=== PATIENT | male | born 1945 | race Caucasian/White ===

== ENCOUNTER 2018-07-17 10:42 | Inpatient (IN) ==
[2018-07-17] MEDS ORDERED: *HR* Metoprolol 5 MG/5 ML VIAL IVP PRN (12:57)
--- NOTE | 2018-07-17 13:10 | Pulmonology History & Physical ---
<Jarod Garcia W - Last Filed: 07/17/18 13:16> Date of Encounter: 07/17/18 History of Present Illness HPI: Mr. Rodriguez is a 73 year old male Medications and Allergies Albuterol Sulfate [Proair Respiclick] 2 puff IH QID PRN 02/08/15 [History] Atenolol [Tenormin] 50 mg PO QPM 02/08/15 [History] Clopidogrel [Plavix] 75 mg PO QAM 02/08/15 [History] Cranberry 140 mg PO QAM 02/08/15 [History] GlyBURIDE 10 mg PO BID 02/08/15 [History] LORazepam [Ativan] 1 mg PO TID 02/08/15 [History] Lisinopril [Zestril] 1.25 mg PO QAM 02/08/15 [History] Multivitamin/Iron/Folic Acid [Centrum Complete Multivit Tab] 1 each PO QAM 02/08/15 [History] Paroxetine [Paxil] 10 mg PO BID 02/08/15 [History] Simvastatin [Zocor] 10 mg PO QPM 02/08/15 [History] metFORMIN [Glucophage] 1,000 mg PO BID 02/08/15 [History] Albuterol Neb [Proventil Neb] 2.5 mg IH QID 30 Days 02/11/15 [Rx] Budesonide/Formoterol 160/4.5 [Symbicort] 2 puff IH BIDR 30 Days inhaler 02/11/15 [Rx] Doxycycline 100 mg PO BID 9 Days capsule 02/11/15 [Rx] GuaiFENesin ER [Mucinex] 600 mg PO BID PRN tbbp.12hr 02/11/15 [Rx] Levofloxacin [Levaquin] 500 mg PO DAILY #4 tablet 02/11/15 [Rx] PredniSONE 30 mg PO DAILY #2 tablet 02/11/15 [Rx] Allergy/AdvReac Type Severity Reaction Status Date / Time No Known Allergies Allergy Verified 02/08/15 08:41 All Systems: The remainder of the systems were reviewed and are negative - Attending Attestation I examined this patient and my medical decision-making was reviewed with the Resident Physician. I agree with the documented findings, disposition and treatment plan as described except to the extent set forth below. We independently had [id number] contact with the patient Patient seen and examined at bedside Labs, radiology, chart personally reviewed. 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 Consider cardiology consult may add to ACS protocol of heparin if troponin continues to trend up or evidence of echocardiographic wall motion abnormalities. GI: Continue to monitor Nutrition: Nothing by mouth for now Renal: Suspected AK I although we do not have a baseline creatinine in our system. He received fluids continue renal protective strategy UOP Monitored, Cont to Trend sCr and monitor Electrolytes. ID: Severe sepsis modestly elevated lactate we will trend as he is receiving fluids at the outside hospital would hold off on further crystalloid infusion at this time given suspect underlying heart failure the context of NSTEMI Heme/Onc: DVT prophylaxis given Endo: Glucose Monitored hyperglycemia start bolus insulin may need insulin infusion rule out DKA Integ/MSK: Skin Care per routine ICU Nursing Protocol to prevent ulcers. Lines: All lines examined without evidence of infection : Dispo: He will be monitored in the ICU overnight CODE: Full <Geni Meneses - Last Filed: 07/17/18 20:27> Date of Encounter: 07/17/18 Time of Encounter: 13:10 Assessment and Plan (1) Severe sepsis Current visit: Yes Status: Acute SIRS criteria met: HR > 90, RR > 20, WBC > 12 with PNA as suspected source Afebrile, SBP 110's Etiology: suspect community-acquired pneumonia Causative organism: Uncertain WBC 22.3, no bands (WBC 20.2 at [facility]) Lactic acid 3.7 at [facility] -----> repeat lactic acid 2.1 Received 2 L fluid bolus prior to arrival Respiratory infection panel--results pending Legionella and strep pneumo urinary antigens--results pending CXR: Airspace opacity of left hemithorax, likely pneumonia Levaquin 1 dose and vancomycin 1 dose at [facility] Plan Blood cultures obtained, results pending Sputum culture ordered, will try to collect Empiric antibiotics Rocephin and Levaquin will start tomorrow Repeat lactic acid 1 Monitor for fever overnight (2) Acute hypoxemic respiratory failure Current visit: No Status: Acute Most likely secondary to AECOPD as a result of pneumonia Known history COPD, not on home oxygen Reported SpO2 58% on room air when patient arrived at [facility] Initial ABG at [facility] pH 7.37 / pCO2 34 / pO2 57 / bicarb 19.7 / O2 sat 88% Repeat ABG on BiPAP pH 7.35 / pCO2 34 / pO2 159 / bicarb 18.8 / O2 sat 99% Antibiotics as above Continue DuoNebs, Symbicort Continue BiPAP overnight (3) Pneumonia Current visit: Yes Status: Acute As above Qualifiers: Pneumonia type: due to unspecified organism Laterality: left Lung location: unspecified part of lung Qualified Code(s): J18.9 - Pneumonia, unspecified organism (4) Acute exacerbation of chronic obstructive airways disease Current visit: Yes Status: Acute Known history of COPD, not on home oxygen Acute exacerbation most likely due to suspected community-acquired pneumonia Received Solu-Medrol 125 mg IVP 2 doses at [facility] Continue antibiotics as above Continue DuoNebs and Symbicort Continue BiPAP Solu-Medrol 60 mg IVP Q8H (5) Elevated troponin Current visit: No Status: Acute Troponin 0.18, 0.72, now 1.23 Must rule out ACS, however I suspect elevation is more likely d/t combination of demand ischemia from respiratory failure, severe sepsis, and CHAI EKG at [facility] showed ST depression in V5-V6, received ASA 325 mg prior to arrival No ST elevations or depression appreciated on repeat EKG--sinus tachycardia and 1st degree AV block noted Echocardiogram ordered Heparin gtt started Repeat troponin ordered Continue cardiac monitoring Cardiology consulted (6) NSTEMI (non-ST elevated myocardial infarction) Current visit: Yes Status: Acute Denies previous h/o [place]; reports heart cath in the past but denies stents/intervention Troponin trending upwards, must rule out ACS EKG findings as above Plan as above (7) Acute kidney injury Current visit: Yes Status: Acute Unclear baseline Creatinine at [facility] 1.62 ---> now 1.8 Suspect pre-renal etiology of demand ischemia secondary to severe sepsis Has received IVF hydration for sepsis and DKA Monitor I/O's including urine output Urine electrolytes ordered (8) DKA (diabetic ketoacidoses) Current visit: Yes Status: Acute Anion gap 14 Beta-hydroxybutyrate elevated 1.23 Hx of DM type 2 Home meds haven't been verified, but metformin and glyburide are listed 2 L fluid bolus held, has received > 2 L prior to arrival ---> will give 500 mL LR at 125 mL/hr Strict I/O's Insulin gtt per DKA protocol Monitor anion gap with BMP, transition off insulin gtt when glucose reaches 200 Glucose checks per protocol NPO for now (diabetic diet once gap closes and insulin gtt transitioned to SubQ) Qualifiers: Diabetes mellitus type: type 2 Diabetes mellitus complication detail: without coma Qualified Code(s): E11.10 - Type 2 diabetes mellitus with ketoacidosis without coma (9) Hypomagnesemia Current visit: Yes Status: Acute Magnesium 1.5 Replace as needed per electrolyte protocol Recheck in AM (10) DVT prophylaxis Current visit: Yes Status: Acute Heparin drip History of Present Illness Chief complaint: Shortness of breath HPI: Mr. Rodriguez is a 73 year old male who was transferred to the ICU from [facility] where he presented for shortness of breath. Per review of chart sent from [facility], patient reported shortness of breath x 12 hours. When patient arrived to [facility] ED he was tachycardic with HR 130s and oxygen saturation was 58% on room air. Shortness of breath improved with BiPAP. CBC significant for leukocytosis of 20.2. Metabolic panel significant for SCr 1.62 with unknown baseline and glucose 358. He received Solu-Medrol 125 mg IV and Levaquin 750 mg IV. EKG at [facility] showed ST depressions in V5 and V6, initial troponin was 0.18 and on repeat troponin was 0.72. Lactic acid was 3.8 and repeat lactic acid was 3.7. He received 2 L of saline. [facility] CXR showed left sided airspace opacity suspicious for pneumonia. Patient was transferred to [place] ICU for further evaluation and management. At the time of my exam the patient was alert, appeared uncomfortable, and was on BiPAP. Patient denies fevers, chills, chest pain, coughing, abdominal pain, nausea, vomiting, diarrhea, constipation, difficulty urinating, pain with urination, hematuria, foul-smelling urine. Reports bringing up clear phlegm once. Past Med Surg Social Fam HX - Past Medical History Medical history: COPD, diabetes, hypertension, renal disease Psychiatric history: anxiety, depression - Past Surgical History Surgical History: other Additional surgical history: heart cath - Social History Smoking Status: Former smoker (quit 10 yrs ago.) Smokeless Tobacco Status: Yes Alcohol use: none Drug use: none All Systems: The remainder of the systems were reviewed and are negative - Constitutional Constitutional: no chills, no fever(s) - Cardiovascular Cardiovascular: dyspnea, no chest pain, no leg edema, no pedal edema - Respiratory Respiratory: dyspnea, wheezing, other, no cough - Gastrointestinal Gastrointestinal: no abdominal pain, no diarrhea, no nausea, no vomiting - Genitourinary Genitourinary: no difficulty urinating, no dysuria, no hematuria - Neurological Neurological: other (walks with cane, fall 3 days ago) Physical Examination General appearance: no acute distress, alert, other (unkempt appearance) Eyes: nonicteric ENT: oropharynx moist Neck: supple Effort: normal Inspection: normal Auscultation: left: rhonchi (base), bilateral: diminished breath sounds Cardiovascular: regular rate and rhythm Gastrointestinal: hypoactive bowel sounds, soft, tender, non-distended Integumentary: other (Left kwon abrasion with surrounding ecchymosis) Extremities: no cyanosis, no edema, pink and warm, pulses normal Musculoskeletal: no deformities normal mental status, non-focal exam, pupils equal and round, other (moves all extremities bilaterally, RUE and LUE tremor at rest) mood appropriate, affect normal Results - Laboratory Findings CBC and BMP: 07/17/18 15:21 07/17/18 15:21
[2018-07-17] MEDS ORDERED: Naloxone 0.4 MG/ML INJ IVP PRN (13:52)
[2018-07-17] MEDS ORDERED: D5% in Water 1,000 ML IVC PRN (14:17)
[2018-07-17] MEDS ORDERED: Dextrose Gel 15 GM/37.5 ML TUBE PO PRN ×2 (14:17)
[2018-07-17] MEDS ORDERED: Potassium Phosphate 44 MEQ in 0.9 % Sodium Chloride 250 ML IVPB PRN (14:27)
[2018-07-17] MEDS ORDERED: Perflutren Lipid Microsphere 1.3 ML in 0.9 % Sodium Chloride 8.7 ML IVP ONE (14:53)
[2018-07-17] MEDS ORDERED: Perflutren Lipid Microsphere 2 ML VIAL ONE (14:59)
[2018-07-17] MEDS: methylPREDNISolone 125 MG/2 ML VIAL IVP SCH (14:59)
[2018-07-17] MEDS ORDERED: cefTRIAXone 2,000 MG in Water for inj. (sterile) 20 ML 20 ML IVP SCH (15:00)
[2018-07-17 15:45] LABS: Basophils % 0.1 %; Hematocrit 39.6 % (37.5-50.1); Hemoglobin 13.3 g/dL (12.9-16.9); Immature Granulocytes % 0.7 % (0-4); Lymphocytes # 0.7 K/mcL (0.6-4.6); Lymphocytes % 3.3 %; Mean Corpuscular HGB Conc 33.6 g/dL (31.6-35.5); Mean Corpuscular Hemoglobin 31.1 pg (28.0-33.3); Mean Corpuscular Volume 92.7 fL (83.0-100.0); Monocytes # 1.2 K/mcL (0.0-1.3); Monocytes % 5.4 %; Neutrophils # 20.2 K/mcL (1.6-8.9); Platelet Count 173 K/mcL (140-400); Red Blood Count 4.27 M/mcL (4.19-5.50); Red Cell Distribution Width 13.7 % (11.5-14.5); Segmented Neutrophils % 90.5 %
[2018-07-17] MEDS: Ipratropium/Albuterol Neb 3 ML IH SCH ×2 (15:45→21:08)
[2018-07-17 16:01] LABS: Magnesium 1.5 mg/dL (1.6-2.6); Phosphorous 3.8 mg/dL (2.7-4.5)
[2018-07-17 16:04] LABS: Albumin 3.6 g/dL (3.5-5.7); Albumin/Globulin Ratio 1.4 (1.1-2.2); Bilirubin,Total 0.5 mg/dL (0.3-1.0); Globulin 2.5 g/dL (2.4-3.5); Potassium 4.6 mEq/L (3.5-5.1); Total Protein 6.1 g/dL (6.4-8.9)
[2018-07-17 16:09] LABS: Sodium, Urine 55.8 mEq/L
[2018-07-17 16:16] LABS: Troponin I 1.23 ng/mL (< 0.04)
[2018-07-17] MEDS ORDERED: Ringers Solution, Lactated 500 ML IVC ONE (16:39)
[2018-07-17] MEDS ORDERED: *HR* Heparin 5,000 UNIT/ML VIAL IVP PRN ×2 (16:47)
[2018-07-17] MEDS ORDERED: *HR* Heparin 5,000 UNIT/ML VIAL IVP ONE (16:47)
[2018-07-17] MEDS ORDERED: Heparin 25,000 UNIT/250 ML D5W 25,000 UNIT/250 ML IV.SOLN IVC SCH (17:00)
[2018-07-17] MEDS ORDERED: D5% in 0.45% NACL w KCl 20 MEQ/1,000 ML MLS IVC PRN (17:16)
[2018-07-17] MEDS ORDERED: D5% in 0.45% NACL 1,000 ML IVC PRN (17:16)
[2018-07-17] MEDS ORDERED: Insulin Regular, Human 100 UNIT/ML IV PRN (17:16)
[2018-07-17] MEDS ORDERED: 0.9 % Sodium Chloride w KCl 20 MEQ/1,000 ML MLS IVC PRN (17:30)
[2018-07-17] MEDS ORDERED: 0.45 % Sodium Chloride w/KCl 20 MEQ/1,000 ML MLS IVC PRN (17:30)
[2018-07-17] MEDS ORDERED: Insulin Human Regular 100 UNIT in 0.9 % Sodium Chloride 100 ML IVC SCH (17:30)
[2018-07-17 17:35] LABS: Heparin anti-factor XA UFH 0.03 IU/mL (0.30-0.70)
[2018-07-17 17:36] LABS: INR 1.1; Prothrombin Time 12.3 Seconds (9.4-12.1)
[2018-07-17] MEDS ORDERED: Insulin LISPRO 300 UNITS/3 ML VIAL SQ SCH ×2 (18:00→21:00)
[2018-07-17] MEDS: 0.9 % Sodium Chloride 1,000 ML IVC SCH ×3 (18:15→22:10)
[2018-07-17] MEDS: *HR* Dextrose 50 % in Water (Syg) 50 ML SYRINGE IVP PRN ×2 (20:10→21:26)
[2018-07-17 21:03] LABS: Calcium 7.8 mg/dL (8.6-10.3); Potassium 3.6 mEq/L (3.5-5.1)
[2018-07-17] MEDS: Budesonide/Formoterol 160/4.5 1 PUFF INH IH SCH (21:08)
[2018-07-17 22:09] LABS: Adenovirus Not Detected (Not Detect); Coronavirus 229E Not Detected (Not Detect); Coronavirus HKU1 Not Detected (Not Detect); Coronavirus NL63 Not Detected (Not Detect); Coronavirus OC43 Not Detected (Not Detect); Human Metapneumovirus Not Detected (Not Detect); Human Rhinovirus/Enterovirus Not Detected (Not Detect); Influenza A Subtype 2009 H1 Not Detected (Not Detect)
[2018-07-17 22:10] LABS: Bordetella Pertussis Not Detected (Not Detect); Chlamydophila pneumoniae Not Detected (Not Detect); Influenza A Untypeable Not Detected (Not Detect); Influenza B Not Detected (Not Detect); Mycoplasma pneumoniae Not Detected (Not Detect); Parainfluenza Virus 1 Not Detected (Not Detect); Parainfluenza Virus 2 Not Detected (Not Detect); Parainfluenza Virus 3 Not Detected (Not Detect); Parainfluenza Virus 4 Not Detected (Not Detect); Respiratory Syncytial Virus Not Detected (Not Detect)
[2018-07-17] MEDS: Insulin LISPRO 300 UNITS/3 ML VIAL SQ SCH (22:10)
[2018-07-18 00:16] LABS: VBG HCO3 21 mEq/L (21-27); VBG PCO2 54 mmHg (41-51); VBG PH 7.19 pH Units (7.32-7.42); VBG PO2 45 mmHg (25-50)
[2018-07-18] MEDS: methylPREDNISolone 125 MG/2 ML VIAL IVP SCH ×4 (00:25→23:08)
[2018-07-18 00:28] LABS: Calcium 7.8 mg/dL (8.6-10.3); Potassium 3.9 mEq/L (3.5-5.1)
[2018-07-18] MEDS ORDERED: Insulin DETEMIR 100 UNIT/ML X5UNITS SQ STA (00:47)
[2018-07-18] MEDS: 0.9 % Sodium Chloride 1,000 ML IVC SCH ×5 (02:03→12:04)
[2018-07-18] MEDS: Ipratropium/Albuterol Neb 3 ML IH SCH ×4 (03:40→22:24)
[2018-07-18 06:59] LABS: Basophils % 0.1 %; Hematocrit 33.3 % (37.5-50.1); Immature Granulocytes % 0.9 % (0-4); Lymphocytes % 6.4 %; Mean Corpuscular HGB Conc 33.3 g/dL (31.6-35.5); Mean Corpuscular Hemoglobin 31.2 pg (28.0-33.3); Mean Corpuscular Volume 93.5 fL (83.0-100.0); Mean Platelet Volume 9.8 fL (9.4-12.4); Monocytes # 0.5 K/mcL (0.0-1.3); Monocytes % 3.3 %; Neutrophils # 13.5 K/mcL (1.6-8.9); Platelet Count 144 K/mcL (140-400); Red Blood Count 3.56 M/mcL (4.19-5.50); Segmented Neutrophils % 89.3 %
[2018-07-18 07:00] LABS: VBG Ionized Calcium 1.12 mmol/L (1.15-1.35)
[2018-07-18 07:01] LABS: Hemoglobin 11.1 g/dL (12.9-16.9)
[2018-07-18 07:16] LABS: BUN/Creatinine Ratio 29 (6-26); Blood Urea Nitrogen 40 mg/dL (8-23); Calcium 7.7 mg/dL (8.6-10.3); Carbon Dioxide 21 mEq/L (23-29); Chloride 111 mEq/L (98-107); Glucose 256 mg/dL (70-105); Osmolality,Calculated 309 (280-300); Phosphorous 3.1 mg/dL (2.7-4.5); Potassium 4.3 mEq/L (3.5-5.1); Sodium 140 mEq/L (136-145); eGFR For Non-African Americans 51 (> 60)
[2018-07-18] MEDS: Insulin LISPRO 300 UNITS/3 ML VIAL SQ SCH ×4 (07:57→22:14)
[2018-07-18 08:04] LABS: ABG Base Excess -6 mEq/L (-2 to 3); ABG HCO3 19 mEq/L (21-27); ABG Oxygen Saturation 98 % (95-98); ABG PCO2 38 mmHg (35-45); ABG PH 7.31 pH Units (7.32-7.45); ABG PO2 123 mmHg (85-104); ABG TCO2 20 mEq/L (20-26); Blood Gas Modality CPAP/PS; Blood Gas PEEP 8 cm H2O; Blood Gas Pressure Support 16 cm H2O
[2018-07-18] MEDS ORDERED: *HR* FentaNYL (PF) 100 MCG/2 ML VIAL ONE (08:44)
[2018-07-18] MEDS ORDERED: Aminoglycoside Consult 1 EACH MC ONE (08:55)
[2018-07-18] MEDS ORDERED: Levofloxacin 750 MG/150 ML 750 MG/150 ML BAG IVPB SCH (09:00)
--- NOTE | 2018-07-18 10:22 | Pulmonology Progress Note ---
<JoesJarod W - Last Filed: 07/18/18 10:27> Date of Encounter: 07/18/18 Objective PUL Vital signs: Last Vital Signs Temp 96.6 F L 07/18/18 08:10 Pulse 98 07/18/18 09:00 Resp 19 07/18/18 09:00 BP 124/77 07/18/18 09:00 Pulse Ox 100 07/18/18 09:00 Results - Laboratory Findings CBC and BMP: 07/18/18 06:47 07/18/18 06:47 ABG ABG pH 7.31 pH Units (7.32-7.45) L 07/18/18 08:00 ABG pCO2 38 mmHg (35-45) 07/18/18 08:00 ABG pO2 123 mmHg (85-104) H 07/18/18 08:00 ABG O2 Saturation 98 % (95-98) 07/18/18 08:00 PT/INR, D-dimer PT 12.3 Seconds (9.4-12.1) H 07/17/18 17:09 Abnormal lab findings: Abnormal lab results WBC 15.1 K/mcL (4.3-11.1) H 07/18/18 06:47 RBC 3.56 M/mcL (4.19-5.50) L 07/18/18 06:47 Hgb 11.1 g/dL (12.9-16.9) L D 07/18/18 06:47 Hct 33.3 % (37.5-50.1) L 07/18/18 06:47 Neutrophils # 13.5 K/mcL (1.6-8.9) H 07/18/18 06:47 PT 12.3 Seconds (9.4-12.1) H 07/17/18 17:09 ABG pH 7.31 pH Units (7.32-7.45) L 07/18/18 08:00 ABG pO2 123 mmHg (85-104) H 07/18/18 08:00 ABG HCO3 19 mEq/L (21-27) L 07/18/18 08:00 ABG Base Excess -6 mEq/L (-2 to 3) L 07/18/18 08:00 VBG pH 7.19 pH Units (7.32-7.42) L* 07/18/18 00:10 VBG pCO2 54 mmHg (41-51) H 07/18/18 00:10 Chloride 111 mEq/L (98-107) H 07/18/18 06:47 Carbon Dioxide 21 mEq/L (23-29) L 07/18/18 06:47 BUN 40 mg/dL (8-23) H 07/18/18 06:47 Creatinine 1.38 mg/dL (0.70-1.30) H 07/18/18 06:47 Est GFR (Non-Af Amer) 51 (> 60) L 07/18/18 06:47 BUN/Creatinine Ratio 29 (6-26) H 07/18/18 06:47 Glucose 256 mg/dL (70-105) H 07/18/18 06:47 POC Glucose 193 mg/dL (70-99) H 07/18/18 00:09 Calculated Osmolality 309 (280-300) H 07/18/18 06:47 Calcium 7.7 mg/dL (8.6-10.3) L 07/18/18 06:47 Venous Ioniz Calcium 1.12 mmol/L (1.15-1.35) L 07/18/18 06:58 Troponin I 1.01 ng/mL (< 0.04) H* 07/17/18 23:53 Serum Total Protein 6.1 g/dL (6.4-8.9) L 07/17/18 15:21 Beta-Hydroxybutyric Acd 1.23 mmol/L (0.02-0.27) H 07/17/18 15:21 - Microbiology Findings Microbiology Findings: Microbiology, Last 48 Hours 07/17/18 15:15 Blood Culture - Preliminary Peripheral Venipuncture Culture is incubating and being continuously monitored for growth. Final report to follow. 07/17/18 15:21 Blood Culture - Preliminary Peripheral Venipuncture Culture is incubating and being continuously monitored for growth. Final report to follow. - Clinical Findings Intake & Output: Intake & Output 07/17/18 07/18/18 07/18/18 23:59 07:59 15:59 Intake Total 249.1 / 249.1 1076.5 / 1076.5 Output Total 300 / 300 350 / 350 Balance -50.9 / -50.9 726.5 / 726.5 Consult Discharge Plan - Plan [facility]: [facility] Care Provider[facility] - - Attending Attestation I examined this patient and my medical decision-making was reviewed with the Resident Physician. I agree with the documented findings, disposition and treatment plan as described except to the extent set forth below. We aicha haskinsly had [id number] contact with the patient Patient seen and examined at bedside Labs, radiology, chart personally reviewed. Management was reviewed during multidisciplinary critical care rounds. 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 GI: Continue to monitor Nutrition: Once off BiPAP consistently and nasal cannula can advance diet Renal: AK I improving this is likely secondary to prerenal azotemia patient refusing Nelson catheter will obtain renal ultrasound continue nephro protective strategy UOP Monitored, Cont to Trend sCr and monitor Electrolytes. ID: Severe community-acquired pneumonia on vancomycin and Levaquin planned to de-escalate based upon cultures Heme/Onc: He is on heparin infusion drop in H&H likely reflecting dilution but will need to monitor this very closely no active evidence of hemorrhage Endo: DKA has resolved transitioned to basal bolus insulin Glucose Monitored Integ/MSK: Skin Care per routine ICU Nursing Protocol to prevent ulcers. Lines: All lines examined without evidence of infection : [facility] CODE: Full <Geni Meneses - Last Filed: 07/18/18 14:05> Date of Encounter: 07/18/18 Time of Encounter: 08:00 Assessment and Plan (1) Severe sepsis Current Visit: Yes Status: Acute Severe sepsis criteria met on admission: HR > 90, RR > 20, WBC > 12 with PNA as suspected source Remains afebrile Normotensive, but several hypotensive BP's recorded overnight, possibly related to severe sepsis Etiology: suspect community-acquired pneumonia Causative organism: Unclear WBC 17.5 today Lactic acid 3.7 at [facility] and received 2 L fluid bolus prior to arrival Lactic acid at [place] 2.1, 3.8, and today 1.5 Respiratory infection panel--negative Legionella and strep pneumo urinary antigens--sample received, results pending BCx--results pending Sputum culture--pending collection CXR: Airspace opacity of left hemithorax, likely pneumonia ---> repeat CXR this morning: left lung infiltrates improving Levaquin 1 dose and vancomycin 1 dose at [facility] Levaquin day 2 and Vancomycin day 2 Plan Continue and adjust levaquin for renal function--750 mg IV Q48H Pharmacy to dose vancomycin, continue Monitor blood cultures for growth obtained, results pending (2) Acute hypoxemic respiratory failure Current Visit: Yes Status: Acute Most likely secondary to AECOPD as a result of pneumonia Known history COPD, not on home oxygen Reported SpO2 58% on room air when patient arrived at [facility] Initial ABG at [facility] pH 7.37 / pCO2 34 / pO2 57 / bicarb 19.7 / O2 sat 88% Repeat ABG on BiPAP pH 7.35 / pCO2 34 / pO2 159 / bicarb 18.8 / O2 sat 99% ABG today: pH 7.31 / pCO2 38 / pO2 123 / bicarb 19 / O2 sat 98% Antibiotics as above Continue DuoNebs, Symbicort Wean from BiPAP, may need BiPAP HS (3) Pneumonia Current Visit: Yes Status: Acute As above Qualifiers: Pneumonia type: due to unspecified organism Laterality: left Lung lo cation: unspecified part of lung Qualified Code(s): J18.9 - Pneumonia, unspecified organism (4) Acute exacerbation of chronic obstructive airways disease Current Visit: Yes Status: Acute Known history of COPD, not on home oxygen Acute exacerbation most likely due to suspected community-acquired pneumonia Received Solu-Medrol 125 mg IVP 2 doses at [facility] Continue antibiotics as above Continue DuoNebs and Symbicort Wean from BiPAP, may need BiPAP HS Solu-Medrol 60 mg IVP Q8H (5) Acute kidney injury Current Visit: Yes Status: Acute Improved Suspected, but baseline unknown No known h/o of CKD, but does have risk factors including DM, HTN, and older age SCr 1.8 on arrival and trending downward, SCr 1.38 this morning (eGFR 37 --> 51) Creatinine improved with receiving IVF hydration for sepsis and DKA Suspect pre-renal etiology of demand ischemia secondary to severe sepsis--FENa 0.7% suggests pre-renal Continue to follow renal function with metabolic panels Monitor I/O's including urine output (however, patient refusing nelson) Renal ultrasound ordered to rule out obstruction Renal dose medications, avoid nephrotoxins (6) Elevated troponin Current Visit: Yes Status: Acute Troponin this morning 1.01 Troponin 0.18, 0.72 at [facility]; peak troponin 1.23 Suspect elevation is more likely d/t combination of demand ischemia from respiratory failure, severe sepsis, and CHAI EKG at [facility] showed ST depression in V5-V6, received ASA 325 mg prior to arrival No ST elevations or depression appreciated on repeat EKG--sinus tachycardia and 1st degree AV block noted Echocardiogram LVEF 50-55%, mild LV systolic dysfunction, mild LV diastolic dys function, segmental WMA, no pulm HTN Per cardiology note: not consistent with ACS, planning for ischemic evaluation via LHC prior to d/c and improvement of respiratory status Continue heparin gtt Continue cardiac monitoring Cardiology consulted (7) NSTEMI (non-ST elevated myocardial infarction) Current Visit: Yes Status: Acute Seen by cardiology this morning--cardiac enzymes not consistent with ACS per consult note Denies previous heart hx, reports stress test performed at [place] several years ago (no records available to review) Plan as above (8) DKA (diabetic ketoacidoses) Current Visit: Yes Status: Acute Resolved--gap closed this morning (AG 8) Anion gap 14 on arrival, was placed on DKA protocol Beta-hydroxybutyrate elevated 1.23 Hx of DM type 2--home meds unverified, but glyburide and metformin listed Received 1700 mL fluid since arrival (in addition to the 2000 mL he received at [facility]) Strict I/O's Low dose sliding scale insulin Glucose checks AC HS Diabetic diet Qualifiers: Diabetes mellitus type: type 2 Diabetes mellitus complication detail: without coma Qualified Code(s): E11.10 - Type 2 diabetes mellitus with ketoacidosis without coma (9) Hypomagnesemia Current Visit: Yes Status: Resolved Resolved Magnesium corrected to 2 Replace as needed per electrolyte protocol (10) Lactic acidosis Current Visit: Yes Status: Resolved Resolved --> 1.5 today Peaked at 3.8 yesterday Etiology most likely related to severe sepsis secondary to PNA (11) DVT prophylaxis Current Visit: Yes Status: Acute Heparin drip Subjective Principal diagnosis: Acute respiratory failure with hypoxemia Interval history: Seen and examined this morning at bedside. Patient is awake and is on BiPAP per his request, he wants to keep BiPAP on until his albuterol nebulizer is given. He does not appear to be uncomfortable or in any distress; he is in good spirits and appears to be doing well. Patient reports he was able to get several hours of sleep last night. Objective PUL Vital signs: Last Vital Signs Temp 96.6 F L 07/18/18 08:10 Pulse 98 07/18/18 09:00 Resp 19 07/18/18 09:00 BP 124/77 07/18/18 09:00 Pulse Ox 100 07/18/18 09:00 General appearance: no acute distress, alert Eyes: nonicteric ENT: oropharynx moist Neck: supple Effort: normal Auscultation: bilateral: diminished breath sounds, rhonchi (L > R) Cardiovascular: other Gastrointestinal: hypoactive bowel sounds, soft, non-tender, non-distended Integumentary: normal Extremities: no cyanosis, no edema, no clubbing, pink and warm, pulses normal normal mental status, non-focal exam, pupils equal and round mood appropriate, affect normal Results - Laboratory Findings CBC and BMP: 07/18/18 10:43 07/18/18 06:47 ABG ABG pH 7.31 pH Units (7.32-7.45) L 07/18/18 08:00 ABG pCO2 38 mmHg (35-45) 07/18/18 08:00 ABG pO2 123 mmHg (85-104) H 07/18/18 08:00 ABG O2 Saturation 98 % (95-98) 07/18/18 08:00 PT/INR, D-dimer PT 12.3 Seconds (9.4-12.1) H 07/17/18 17:09 Abnormal lab findings: Abnormal lab results WBC 15.1 K/mcL (4.3-11.1) H 07/18/18 06:47 RBC 3.56 M/mcL (4.19-5.50) L 07/18/18 06:47 Hgb 11.1 g/dL (12.9-16.9) L D 07/18/18 06:47 Hct 33.3 % (37.5-50.1) L 07/18/18 06:47 Neutrophils # 13.5 K/mcL (1.6-8.9) H 07/18/18 06:47 PT 12.3 Seconds (9.4-12.1) H 07/17/18 17:09 ABG pH 7.31 pH Units (7.32-7.45) L 07/18/18 08:00 ABG pO2 123 mmHg (85-104) H 07/18/18 08:00 ABG HCO3 19 mEq/L (21-27) L 07/18/18 08:00 ABG Base Excess -6 mEq/L (-2 to 3) L 07/18/18 08:00 VBG pH 7.19 pH Units (7.32-7.42) L* 07/18/18 00:10 VBG pCO2 54 mmHg (41-51) H 07/18/18 00:10 Chloride 111 mEq/L (98-107) H 07/18/18 06:47 Carbon Dioxide 21 mEq/L (23-29) L 07/18/18 06:47 BUN 40 mg/dL (8-23) H 07/18/18 06:47 Creatinine 1.38 mg/dL (0.70-1.30) H 07/18/18 06:47 Est GFR (Non-Af Amer) 51 (> 60) L 07/18/18 06:47 BUN/Creatinine Ratio 29 (6-26) H 07/18/18 06:47 Glucose 256 mg/dL (70-105) H 07/18/18 06:47 POC Glucose 193 mg/dL (70-99) H 07/18/18 00:09 Calculated Osmolality 309 (280-300) H 07/18/18 06:47 Calcium 7.7 mg/dL (8.6-10.3) L 07/18/18 06:47 Venous Ioniz Calcium 1.12 mmol/L (1.15-1.35) L 07/18/18 06:58 Troponin I 1.01 ng/mL (< 0.04) H* 07/17/18 23:53 Serum Total Protein 6.1 g/dL (6.4-8.9) L 07/17/18 15:21 Beta-Hydroxybutyric Acd 1.23 mmol/L (0.02-0.27) H 07/17/18 15:21 - Microbiology Findings Microbiology Findings: Microbiology, Last 48 Hours 07/17/18 15:15 Blood Culture - Preliminary Peripheral Venipuncture Culture is incubating and being continuously monitored for growth. Final report to follow. 07/17/18 15:21 Blood Culture - Preliminary Peripheral Venipuncture Culture is incubating and being continuously monitored for growth. Final report to follow. - Clinical Findings Intake & Output: Intake & Output 07/17/18 07/18/18 07/18/18 23:59 07:59 15:59 Intake Total 249.1 / 249.1 1076.5 / 1076.5 Output Total 300 / 300 350 / 350 Balance -50.9 / -50.9 726.5 / 726.5
[2018-07-18] MEDS: Budesonide/Formoterol 160/4.5 1 PUFF INH IH SCH ×2 (10:38→22:24)
--- NOTE | 2018-07-18 10:45 | Cardiology Consult Note ---
Date of Encounter: 07/18/18 Time of Encounter: 10:15 Assessment and Plan (1) NSTEMI (non-ST elevated myocardial infarction) Current Visit: Yes Status: Acute Cardiac enzymes not consistent with ACS. More likely demand ischemia due to profound hypoxia, pneumonia/sepsis. Echocardiogram with preserved LV function but does have segmental WMA. Has multiple risk factors for CAD. Will plan on ischemic evaluation via [facility] prior to d/c after respiratory status improves. (2) COPD exacerbation Current Visit: Yes Status: Chronic Per primary team. (3) Acute hypoxemic respiratory failure Current Visit: Yes Status: Acute Per primary team. Discussion w patient/family: The assessment and plan as outlined above was discussed with the patient and/or family members who expressed understanding and agreement. All questions were answered. Thank you for involving us in the care of your patient. Please call with any questions. History of Present Illness Consult date: 07/18/18 Requesting physician: Geni Meneses Consult reason: elevated troponin Chief complaint: dyspnea History of present illness: Mr. Rodriguez is a 73 year old male with COPD, DM, HTN, CRI presents as transfer to [facility] from [facility] for evavluation of dyspnea. Pt states was in baseline state of health until yesterday when had acute SOB- "hit me all at once." Denies fevers, chills, chest pain. Went to [facility] ED and was noted to have O2 sats of 58% on RA with HR 130s. Was placed on BiPAP which improved symptoms. Noted to have pneumonia on CXR, elevated WBC. Initial tr oponin was 0.18, 0.72. Pt transferred to [facility] for further evaluation/tx. Subsequent troponins have been 1.23, 1.11, 1.01. EKG demonstrates sinus tachycardia with 1st degree AVB. Echocardiogram yesterday demonstrates EF 50- 55% with segmental WMA, no significant VHD. Currently pt lying in bed wearing biPAP. States feels markedly improved compared to yesterday. Denies prior cardiac history. Denies prior cardiac catheterizations. States had remote stress test at [place]- no records available for review. Past Med Surg Social Fam HX - Past Medical History Medical history: COPD, diabetes, hypertension, renal disease Psychiatric history: anxiety, depression - Past Surgical History Surgical History: other Additional surgical history: heart cath - Social History Smoking Status: Former smoker (quit 10 yrs ago.) Smokeless Tobacco Status: Yes Alcohol use: none Drug use: none Medications and Allergies Albuterol Sulfate [Proair Respiclick] 2 puff IH QID PRN 02/08/15 [History] Atenolol [Tenormin] 50 mg PO QPM 02/08/15 [History] Clopidogrel [Plavix] 75 mg PO QAM 02/08/15 [History] Cranberry 140 mg PO QAM 02/08/15 [History] GlyBURIDE 10 mg PO BID 02/08/15 [History] LORazepam [Ativan] 1 mg PO TID 02/08/15 [History] Lisinopril [Zestril] 1.25 mg PO QAM 02/08/15 [History] Multivitamin/Iron/Folic Acid [Centrum Complete Multivit Tab] 1 each PO QAM 02/08/15 [History] Paroxetine [Paxil] 10 mg PO BID 02/08/15 [History] Simvastatin [Zocor] 10 mg PO QPM 02/08/15 [History] metFORMIN [Glucophage] 1,000 mg PO BID 02/08/15 [History] Albuterol Neb [Proventil Neb] 2.5 mg IH QID 30 Days 02/11/15 [Rx] Budesonide/Formoterol 160/4.5 [Symbicort] 2 puff IH BIDR 30 Days inhaler 02/11/15 [Rx] Doxycycline 100 mg PO BID 9 Days capsule 02/11/15 [Rx] GuaiFENesin ER [Mucinex] 600 mg PO BID PRN tbbp.12hr 02/11/15 [Rx] Levofloxacin [Levaquin] 500 mg PO DAILY #4 tablet 02/11/15 [Rx] PredniSONE 30 mg PO DAILY #2 tablet 02/11/15 [Rx] Allergy/AdvReac Type Severity Reaction Status Date / Time No Known Allergies Allergy Verified 02/08/15 08:41 All Systems Review: The remainder of the systems were reviewed and are negative - Cardiovascular Cardiovascular: as per HPI Physical Examination Vital Signs, Last 4 Hours Temp Pulse Resp BP Pulse Ox 07/18/18 09:00 98 19 124/77 100 07/18/18 08:10 96.6 F L 07/18/18 08:00 105 18 116/81 99 General: Conversant, Other (wearing biPAP with mild resp distress) HEENT: Atraumatic, Normocephaly, Mucus Membranes Moist Neck: No JVD, Normal carotid pulses Cardiac: Reg Rate and Rhythm, Other (distant heart tones) Lungs: Other (decreased BS throughout) Neuro: Alert and responsive, No focal deficits noted Abdomen: Soft, Non-Tender Skin: No rashes noted on visualized skin Musculoskeletal: No Chest Wall Tenderness Extremities: No Clubbing, No Cyanosis, No Edema, Normal Pulses Results 07/18/18 06:47 07/18/18 06:47 Lab Results 07/17/18 07/17/18 07/17/18 15:21 15:21 15:21 WBC 22.3 H Hgb 13.3 Hct 39.6 Plt Count 173 INR Sodium 135 L Potassium 4.6 Chloride 107 Carbon Dioxide 14 L BUN 37 H Creatinine 1.80 H Glucose 495 H Calcium 8.0 L Magnesium 1.5 L Total Bilirubin 0.5 AST 30 ALT 31 Alkaline Phosphatase 62 Troponin I 1.23 H* 07/17/18 07/17/18 07/17/18 17:09 20:31 20:31 WBC Hgb Hct Plt Count INR 1.1 Sodium 143 Potassium 3.6 Chloride 113 H Carbon Dioxide 17 L BUN 37 H Creatinine 1.65 H Glucose 108 H Calcium 7.8 L Magnesium Total Bilirubin AST ALT Alkaline Phosphatase Troponin I 1.11 H* 07/17/18 07/17/18 07/18/18 23:53 23:53 06:47 WBC 15.1 H Hgb 11.1 L D Hct 33.3 L Plt Count 144 INR Sodium 141 Potassium 3.9 Chloride 110 H Carbon Dioxide 20 L BUN 37 H Creatinine 1.59 H Glucose 147 H Calcium 7.8 L Magnesium Total Bilirubin AST ALT Alkaline Phosphatase Troponin I 1.01 H* 07/18/18 06:47 WBC Hgb Hct Plt Count INR Sodium 140 Potassium 4.3 Chloride 111 H Carbon Dioxide 21 L BUN 40 H Creatinine 1.38 H Glucose 256 H Calcium 7.7 L Magnesium 2.0 Total Bilirubin AST ALT Alkaline Phosphatase Troponin I - EKG Interpretation EKG results cardiology: personally reviewed (sinus tachycardia with 1st degree AVB) Consult Discharge Plan - Plan [facility]errals: [facility] [Primary Care Provider] -
[2018-07-18 11:03] LABS: Basophils % 0.1 %; Hematocrit 34.1 % (37.5-50.1); Hemoglobin 11.7 g/dL (12.9-16.9); Immature Granulocytes % 1.6 % (0-4); Lymphocytes % 5.8 %; Mean Corpuscular HGB Conc 34.3 g/dL (31.6-35.5); Mean Corpuscular Hemoglobin 31.9 pg (28.0-33.3); Mean Corpuscular Volume 92.9 fL (83.0-100.0); Mean Platelet Volume 9.8 fL (9.4-12.4); Monocytes # 0.7 K/mcL (0.0-1.3); Neutrophils # 15.5 K/mcL (1.6-8.9); Platelet Count 167 K/mcL (140-400); Red Blood Count 3.67 M/mcL (4.19-5.50); Red Cell Distribution Width 14.2 % (11.5-14.5); Segmented Neutrophils % 88.5 %
[2018-07-18] MEDS ORDERED: Naloxone 0.4 MG/ML INJ IVP PRN (12:10)
[2018-07-18] MEDS ORDERED: *HR* Heparin 5,000 UNIT/ML VIAL IVP PRN ×2 (12:10)
[2018-07-18] MEDS ORDERED: cefTRIAXone 2,000 MG in Water for inj. (sterile) 20 ML 20 ML IVP SCH (15:00)
[2018-07-18] MEDS: Heparin 25,000 UNIT/250 ML D5W 25,000 UNIT/250 ML IV.SOLN IVC SCH ×2 (16:21→23:05)
[2018-07-19] MEDS: Ipratropium/Albuterol Neb 3 ML IH SCH ×6 (03:50→23:32)
[2018-07-19] MEDS: methylPREDNISolone 125 MG/2 ML VIAL IVP SCH (07:46)
[2018-07-19] MEDS: Insulin LISPRO 300 UNITS/3 ML VIAL SQ SCH ×4 (07:47→22:53)
[2018-07-19] MEDS ORDERED: *HR* Metoprolol 5 MG/5 ML VIAL IVP PRN (08:17)
[2018-07-19] MEDS ORDERED: Dextrose Gel 15 GM/37.5 ML TUBE PO PRN ×2 (08:34)
[2018-07-19] MEDS ORDERED: *HR* Dextrose 50 % in Water (Syg) 50 ML SYRINGE IVP PRN (08:34)
[2018-07-19] MEDS ORDERED: D5% in Water 1,000 ML IVC PRN (08:34)
--- NOTE | 2018-07-19 08:48 | Event Note ---
Date of Encounter: 07/19/18 Time of Encounter: 08:46 - Cardiology Event Note ELevated troponin, thought to be demand ischemia, however does have wall motion abnormalities on TTE. Plan for LHC prior to discharge once stable from respiratory standpoint (able to lay flat). Currently still requiring high flow nasal cannula. Cardiology will sign off for now, re-consult when stable for LHC.
[2018-07-19] MEDS ORDERED: Levofloxacin 750 MG/150 ML 750 MG/150 ML BAG IVPB SCH (09:00)
[2018-07-19] MEDS: Levofloxacin 750 MG/150 ML 750 MG/150 ML BAG IVPB SCH (10:00)
[2018-07-19] MEDS: Budesonide/Formoterol 160/4.5 1 PUFF INH IH SCH ×2 (10:09→19:55)
[2018-07-19 10:33] LABS: Basophils % 0.1 %; Hemoglobin 12.1 g/dL (12.9-16.9); Immature Granulocytes % 1.4 % (0-4); Lymphocytes # 0.7 K/mcL (0.6-4.6); Lymphocytes % 3.9 %; Mean Corpuscular HGB Conc 33.6 g/dL (31.6-35.5); Mean Corpuscular Hemoglobin 30.8 pg (28.0-33.3); Mean Corpuscular Volume 91.6 fL (83.0-100.0); Mean Platelet Volume 10.1 fL (9.4-12.4); Monocytes # 0.8 K/mcL (0.0-1.3); Monocytes % 4.8 %; Neutrophils # 15.9 K/mcL (1.6-8.9); Platelet Count 215 K/mcL (140-400); Red Blood Count 3.93 M/mcL (4.19-5.50); Red Cell Distribution Width 14.7 % (11.5-14.5); Segmented Neutrophils % 89.8 %
--- NOTE | 2018-07-19 10:35 | Internal Med Progress Note ---
Hospitalist Progress Note - Encounter Date of Encounter: 07/19/18 Time of Encounter: 08:15 - Subjective Interval History: Hospital course reviewed. 73-year-old male with history of COPD, diabetes, hypertension, was admitted on 07/17 due to hypoxic respiratory failure, severe sepsis secondary to community acquired pneumonia. Complicated by DKA, elevated troponin, and CHAI. Initially required continous BiPaP, insulin gtt which were both successfully transition to NC and SQ insulin respectively. Today, he reports mild dyspnea but significantly better than the initial presentation. No chest pain, palpitation, or leg swelling. No fever overnight. - Exam Vitals: Temp Pulse Resp BP Pulse Ox 98.6 F 108 20 149/68 96 07/19/18 08:48 07/19/18 09:58 07/19/18 10:13 07/19/18 08:48 07/19/18 10:13 Exam: General: Alert and oriented, mild respiratory distress. Cardiovascular:Normal S1 & S2, No JVD. Pulse regular but tachycardic Lungs: bilateral wheezes and rhonchi at the bases Abdomen:Soft, non-tender, no rigidity. Extremities:No deformity or swelling Neurological:Normal cognition and motor skills. Non-focal - Assessment and Plan (1) Severe sepsis Current Visit: Yes Status: Acute Assessment and Plan: Secondary to community acquired pneumonia, 3/4 SIRS +Ve on presentation improved with Vanc/levaquin, MRSA -ve. WIll d/c Vanc lactate also normalized and now hemodynamically stable follow up on blood cultures (2) Acute hypoxemic respiratory failure Current Visit: Yes Status: Acute Assessment and Plan: Secondary to L pneumonia complicated by COPD exacerbation initially required continuous bipap, now transitioned to 4-5L of NC. Not on home O2 continue abx as above, IV steroid, and bronchodilators RIP -ve, urine ags -ve sputum c/s if able to expectorate continue to wean O2, may need 6min walk test prior to d/c (3) Pneumonia Current Visit: Yes Status: Acute Assessment and Plan: as above (4) Elevated troponin Current Visit: Yes Status: Acute Assessment and Plan: trop 1.2 - 1 in the setting of respiratory failure and sepsis as above nevertheless, Echo showed EF 50-55% with segmental wall motion abnormalities appreciate cardiology input, for LHC prior to d/c. Complete heparin gtt for 48 hours ASA, statin. Resume bb once reconciled, use PRN lopressor for now as the patient appears to have rebound tachycardia (5) Acute kidney injury Current Visit: Yes Status: Acute Assessment and Plan: likely due to ATN, improving monitor off IVF (6) Acute exacerbation of chronic obstructive airways disease Current Visit: Yes Status: Acute Assessment and Plan: abx, steroid, bronchodilators as above (7) DKA (diabetic ketoacidoses) Current Visit: Yes Status: Resolved Assessment and Plan: successfully transitioned to SQ insulin, will add basal insulin 20U daily in addition to sliding scale (8) Hypomagnesemia Current Visit: Yes Status: Resolved Assessment and Plan: normalized, continue to monitor (9) Lactic acidosis Current Visit: Yes Status: Resolved Assessment and Plan: resolved (10) DVT prophylaxis Current Visit: Yes Status: Acute Assessment and Plan: hep gtt, transition to SQ hep once gtt is turned off - Time Spent with Patient Total time spent is greater than 50% in coordination of care (as documented) at patient's floor/unit and/or counseling patient: Greater than 35 minutes Plan of Care Discussed with: nurse (discussed with pharmacy and cardiology as well) Internal Medicine: Result - Labs CBC & Chem 7: 07/18/18 10:43 07/18/18 06:47 Labs: Short CBC 07/18/18 Range/Units 10:43 WBC 17.5 H (4.3-11.1) K/mcL Hgb 11.7 L (12.9-16.9) g/dL Hct 34.1 L (37.5-50.1) % Plt Count 167 (140-400) K/mcL Neutrophils # 15.5 H (1.6-8.9) K/mcL - ABG Interpretation ABG results: ABG ABG pH 7.31 pH Units (7.32-7.45) L 07/18/18 08:00 ABG pCO2 38 mmHg (35-45) 07/18/18 08:00 ABG pO2 123 mmHg (85-104) H 07/18/18 08:00 ABG O2 Saturation 98 % (95-98) 07/18/18 08:00 PT/INR, D-dimer PT 12.3 Seconds (9.4-12.1) H 07/17/18 17:09 - Impressions Impressions Retroperitoneum Ultrasound 04/15/19 09:00 IMPRESSION: Unremarkable ultrasound of the kidneys and urinary bladder. D/ / Vini Bhakta MD / Vini Bhakta MD Interpreting Provider: Vini Bhakta MD Consult Discharge Plan - Plan Referrals: [facility] [Primary Care Provider] - (3) Pneumonia Qualifiers: Pneumonia type: due to unspecified organism Laterality: left Lung location: unspecified part of lung Qualified Code(s): J18.9 - Pneumonia, unspecified o rganism (7) DKA (diabetic ketoacidoses) Qualifiers: Diabetes mellitus type: type 2 Diabetes mellitus complication detail: without coma Qualified Code(s): E11.10 - Type 2 diabetes mellitus with ketoacidosis without coma
[2018-07-19 10:48] LABS: BUN/Creatinine Ratio 35 (6-26); Blood Urea Nitrogen 47 mg/dL (8-23); Calcium 8.4 mg/dL (8.6-10.3); Carbon Dioxide 17 mEq/L (23-29); Chloride 112 mEq/L (98-107); Glucose 263 mg/dL (70-105); Osmolality,Calculated 319 (280-300); Potassium 3.7 mEq/L (3.5-5.1); Sodium 144 mEq/L (136-145); eGFR For Non-African Americans 52 (> 60)
[2018-07-19] MEDS: Insulin DETEMIR 100 UNIT/ML X5UNITS SQ SCH (11:02)
--- NOTE | 2018-07-19 16:26 | Electrocardiograph Report ---
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
[2018-07-19] MEDS: MethylPREDNISolone 40 MG/ML VIAL IVP SCH ×2 (17:23→22:59)
[2018-07-19] MEDS: *HR* LORazepam 1 MG TABLET PO PRN (22:59)
[2018-07-20] MEDS: Ipratropium/Albuterol Neb 3 ML IH SCH ×5 (03:30→20:01)
[2018-07-20] MEDS: *HR* Heparin 5,000 UNIT/ML VIAL SQ SCH ×2 (05:55→17:22)
[2018-07-20 06:46] LABS: BUN/Creatinine Ratio 39 (6-26); Blood Urea Nitrogen 44 mg/dL (8-23); Calcium 8.1 mg/dL (8.6-10.3); Carbon Dioxide 20 mEq/L (23-29); Chloride 113 mEq/L (98-107); Glucose 305 mg/dL (70-105); Magnesium 2.4 mg/dL (1.6-2.6); Osmolality,Calculated 323 (280-300); Potassium 4.1 mEq/L (3.5-5.1); Sodium 145 mEq/L (136-145); eGFR For Non-African Americans > 60 (> 60)
[2018-07-20] MEDS: Budesonide/Formoterol 160/4.5 1 PUFF INH IH SCH ×2 (07:23→20:01)
[2018-07-20 07:57] LABS: Hematocrit 34.5 % (37.5-50.1); Hemoglobin 11.5 g/dL (12.9-16.9); Immature Granulocytes % 1.4 % (0-4); Lymphocytes # 0.4 K/mcL (0.6-4.6); Lymphocytes % 4.5 %; Mean Corpuscular HGB Conc 33.3 g/dL (31.6-35.5); Mean Corpuscular Hemoglobin 31.2 pg (28.0-33.3); Mean Corpuscular Volume 93.5 fL (83.0-100.0); Monocytes # 0.4 K/mcL (0.0-1.3); Monocytes % 3.6 %; Neutrophils # 8.9 K/mcL (1.6-8.9); Platelet Count 165 K/mcL (140-400); Red Blood Count 3.69 M/mcL (4.19-5.50); Red Cell Distribution Width 14.8 % (11.5-14.5); Segmented Neutrophils % 90.5 %
[2018-07-20] MEDS ORDERED: Levofloxacin 750 MG/150 ML 750 MG/150 ML BAG IVPB SCH (08:00)
[2018-07-20] MEDS: MethylPREDNISolone 40 MG/ML VIAL IVP SCH ×2 (09:08→17:21)
[2018-07-20] MEDS: Insulin LISPRO 300 UNITS/3 ML VIAL SQ SCH ×4 (09:11→22:09)
[2018-07-20] MEDS: Aspirin Enteric Coated 81 MG Tablet PO SCH (09:11)
[2018-07-20] MEDS: Insulin DETEMIR 100 UNIT/ML X5UNITS SQ SCH ×2 (09:11→22:10)
[2018-07-20] MEDS: Levofloxacin 750 MG/150 ML 750 MG/150 ML BAG IVPB SCH (09:13)
--- NOTE | 2018-07-20 12:55 | Internal Med Progress Note ---
Hospitalist Progress Note - Encounter Date of Encounter: 07/20/18 Time of Encounter: 12:53 - Subjective Interval History: Patient seen and examined at bedside. Patient states he feels much better today. He is shortness breath has resolved. He still has a mild dry cough but this is improving. Denies fever, chills. Denies chest pain. - Exam Vitals: Temp Pulse Resp BP Pulse Ox 98.6 F 89 22 133/69 96 07/20/18 10:49 07/20/18 10:49 07/20/18 11:31 07/20/18 10:49 07/20/18 11:31 Exam: Gen.: Alert and oriented 3, no acute distress Heart: Regular rate and rhythm, no murmurs, rubs, gallops Lungs: Rare scattered wheezes, no rales, rhonchi. - Assessment and Plan (1) NSTEMI (non-ST elevated myocardial infarction) Current Visit: Yes Status: Acute Assessment and Plan: Patient had elevated troponin presentation initially 1.23, trended down to 1.01. Patient noted of segmental wall motion abnormality. Patient was evaluated by cardiology who felt that he should undergo left heart catheterization once his respiratory status is improved. Discussed with cardiology today and given that he is now on room air and much improved from respiratory standpoint they are planning for left heart catheterization tomorrow. We will make patient nothing by mouth midnight. Patient did complete 48 hours of heparin drip. Patient chest pain-free at this time. (2) Severe sepsis Current Visit: Yes Status: Acute Assessment and Plan: Secondary to community acquired pneumonia, overall appears much improved. Sepsis has resolved. (3) Acute hypoxemic respiratory failure Current Visit: Yes Status: Acute Assessment and Plan: Secondary to pneumonia. Resolved at this time, patient is no longer requiring oxygen supplementation. Continue to monitor oxygen and supplement as necessary. (4) Pneumonia Current Visit: Yes Status: Acute Assessment and Plan: Chest x-ray reviewed shows evidence of left-sided pneumonia. Overall improving, white blood cell count improved, afebrile. Continue Levaquin for a total of 7 days. (5) Acute kidney injury Current Visit: Yes Status: Acute Assessment and Plan: Likely due to sepsis. Creatinine 1.8 on presentation, down to 1.12, GFR greater than 60. Continue to monitor renal function daily. (6) Acute exacerbation of chronic obstructive airways disease Current Visit: Yes Status: Acute Assessment and Plan: Secondary to pneumonia. Still had mild wheezes on exam but improving. Continue antibiotics as above, scheduled bronchodilators, decrease Solu-Medrol to 40 mg IV every 12, likely transition to by mouth tomorrow. (7) DKA (diabetic ketoacidoses) Current Visit: Yes Status: Resolved Assessment and Plan: Resolved. (8) Hypomagnesemia Current Visit: Yes Status: Resolved Assessment and Plan: Resolved. (9) Diabetes mellitus Current Visit: No Status: Chronic Assessment and Plan: Blood sugars elevated in the low 300s but not in DKA. We will increase basal insulin to 20 units twice a day and increase sliding scale insulin coverage to monitor. Check hemoglobin A1c in the morning. (10) DVT prophylaxis Current Visit: Yes Status: Acute Assessment and Plan: Heparin 5000 units subcutaneous twice a day - Time Spent with Patient Total time spent is greater than 50% in coordination of care (as documented) at patient's floor/unit and/or counseling patient: Internal Medicine: Result - Labs CBC & Chem 7: 07/20/18 07:30 07/20/18 06:03 Labs: Short CBC 07/20/18 Range/Units 07:30 WBC 9.8 (4.3-11.1) K/mcL Hgb 11.5 L (12.9-16.9) g/dL Hct 34.5 L (37.5-50.1) % Plt Count 165 (140-400) K/mcL Neutrophils # 8.9 (1.6-8.9) K/mcL BMP 07/20/18 06:03 Sodium 145 Potassium 4.1 Chloride 113 H Carbon Dioxide 20 L BUN 44 H Creatinine 1.12 Glucose 305 H Calcium 8.1 L - ABG Interpretation ABG results: ABG ABG pH 7.31 pH Units (7.32-7.45) L 07/18/18 08:00 ABG pCO2 38 mmHg (35-45) 07/18/18 08:00 ABG pO2 123 mmHg (85-104) H 07/18/18 08:00 ABG O2 Saturation 98 % (95-98) 07/18/18 08:00 PT/INR, D-dimer PT 12.3 Seconds (9.4-12.1) H 07/17/18 17:09 Consult Discharge Plan - Plan [facility]errals: [facility] [Primary Care Provider] - ____ (4) Pneumonia Qualifiers: Pneumonia type: due to unspecified organism Laterality: left Lung location: unspecified part of lung Qualified Code(s): J18.9 - Pneumonia, unspecified organism (7) DKA (diabetic ketoacidoses) Qualifiers: Diabetes mellitus type: type 2 Diabetes mellitus complication detail: without coma Qualified Code(s): E11.10 - Type 2 diabetes mellitus with ketoacidosis without coma (9) Diabetes mellitus Qualifiers: Diabetes mellitus type: type 2 Diabetes mellitus chcf insulin use: without beater out leveling machine use Diabetes mellitus complication status: with hyperglycemia Qualified Code(s): E11.65 - Type 2 diabetes mellitus with hyperglycemia
[2018-07-20] MEDS: *HR* LORazepam 1 MG TABLET PO PRN (22:10)
[2018-07-21] MEDS: Ipratropium/Albuterol Neb 3 ML IH SCH ×6 (00:49→20:24)
[2018-07-21 05:37] LABS: Basophils % 0.1 %; Hematocrit 34.8 % (37.5-50.1); Hemoglobin 11.5 g/dL (12.9-16.9); Lymphocytes # 0.6 K/mcL (0.6-4.6); Mean Corpuscular Hemoglobin 31.1 pg (28.0-33.3); Mean Corpuscular Volume 94.1 fL (83.0-100.0); Mean Platelet Volume 9.9 fL (9.4-12.4); Monocytes # 0.5 K/mcL (0.0-1.3); Monocytes % 6.4 %; Neutrophils # 6.6 K/mcL (1.6-8.9); Platelet Count 167 K/mcL (140-400); Red Cell Distribution Width 14.6 % (11.5-14.5); Segmented Neutrophils % 84.5 %
[2018-07-21 05:50] LABS: Estimated Average Glucose 252 mg/dl; Hemoglobin A1C 10.4 %
[2018-07-21 06:03] LABS: BUN/Creatinine Ratio 34 (6-26); Blood Urea Nitrogen 38 mg/dL (8-23); Calcium 7.8 mg/dL (8.6-10.3); Carbon Dioxide 25 mEq/L (23-29); Chloride 108 mEq/L (98-107); Glucose 206 mg/dL (70-105); Magnesium 2.3 mg/dL (1.6-2.6); Osmolality,Calculated 311 (280-300); Potassium 3.4 mEq/L (3.5-5.1); Sodium 143 mEq/L (136-145); eGFR For Non-African Americans > 60 (> 60)
[2018-07-21] MEDS: *HR* Heparin 5,000 UNIT/ML VIAL SQ SCH ×2 (06:27→18:18)
[2018-07-21] MEDS: MethylPREDNISolone 40 MG/ML VIAL IVP SCH (06:27)
[2018-07-21] MEDS: Budesonide/Formoterol 160/4.5 1 PUFF INH IH SCH ×2 (07:27→20:24)
[2018-07-21] MEDS: Insulin LISPRO 300 UNITS/3 ML VIAL SQ SCH ×4 (08:01→20:02)
[2018-07-21] MEDS: Aspirin Enteric Coated 81 MG Tablet PO SCH (08:34)
[2018-07-21] MEDS: levoFLOXacin 750 MG TABLET PO SCH (08:34)
[2018-07-21] MEDS: Insulin DETEMIR 100 UNIT/ML X5UNITS SQ SCH ×2 (08:37→20:01)
--- NOTE | 2018-07-21 10:38 | Event Note ---
Date of Encounter: 07/21/18 Time of Encounter: 10:37 - Cardiology Event Note PLan for LHC today for NSTEMI, regional wall motion abnormalities noted on TTE. Patient is laying flat, on room air. Risks versus benefits of LHC explained to patient, who states understanding and agreeable to proceed. Further recs pending LHC.
--- NOTE | 2018-07-21 12:08 | Pre-Sedation Evaluation ---
Pre-sedation evaluation - Pre-sedation checklist Date of procedure: 07/21/18 Procedure: Heart Cath Recent Vitals: Last Vital Signs Temp 97.9 F 07/21/18 11:17 Pulse 87 07/21/18 11:17 Resp 18 07/21/18 11:18 BP 152/88 07/21/18 11:17 Pulse Ox 97 07/21/18 11:18 H&P (including ROS) documented in medical record: Yes Previous reaction to sedatives/anesthetics: No Dietary Status: NPO after Midnight Dentition: dentures removed ASA Classification *see protocol: CLASS II-Mild systemic disease Cardiac Registry (Cardio Only) - Functional Capacity Functional Capacity: >=4 METS with symptoms - Clincal Frailty Scale Clinical Frailty Scale: Managing Well
[2018-07-21] MEDS ORDERED: ISOVUE-370 200 ML INFUS..BTL ONE (12:40)
[2018-07-21] MEDS ORDERED: *HR* Heparin 10,000 UNIT/10 ML VIAL ONE (12:40)
[2018-07-21] MEDS ORDERED: Nitroglycerin 1,000 MCG/10 ML VIAL IV ONE (12:40)
[2018-07-21] MEDS ORDERED: Heparin 1,000 UNITS/500 mL 500 ML ONE (12:40)
[2018-07-21] MEDS ORDERED: 0.9 % Sodium Chloride 1,000 ML ONE ×2 (12:40→12:57)
[2018-07-21] MEDS ORDERED: *HR* FentaNYL (PF) 100 MCG/2 ML VIAL ONE (13:05)
[2018-07-21] MEDS ORDERED: *HR* Midazolam HCl 2 MG/2 ML VIAL ONE (13:05)
--- NOTE | 2018-07-21 13:54 | Invasive Diagnostic Lab Proc ---
Name: Jhonny Rodriguez Date of Study: 07/21/2018 Date: 1945 Ht: 66.9in Medical Record#: [id number] Age: 73 Wt: 180.78lb Gender: Male BSA: 1.94 Order #: [id number] BMI: 28.37 Physicians Procedure Physician: Theo Sparrow MD Referring MD: Referring MD: Staff Name [facility] Scrub 12:57 PM Shira Obrien RN Traffic Or System Dispatcher 12:58 PM Soni Carter RN Monitor 12:59 PM Indications Indication Non-Stemi Procedures Performed Procedure L HRT ARTERY/VENTRICLE ANGIO Pre-Procedure Checklist Informed consent is complete signed and on chart. H&P is on chart. ID band is on and ID verified with patient. Patient NPO for procedure The procedure was described for the patient and questions were answered. ECG is on chart. Plan of Care Patient will tolerate the procedure without complications. Adequate level of comfort will be maintained. Hemodynamics will remain stable Patient will recover from procedure without complications. Respiratory function will be maintained. Cardiac rhythm will remain stable. Patient temperature will be maintained. Patient and/or family have verbalized understanding of the procedure. Patient Education Chief Complaint/Reason for Test: Cardiac Cath Developmental Category: Adult (18-64 years) Developmentally Appropriate for Age: Yes Learning Barriers: None Education Needs: Procedure Education Method: Verbal Information Taught: Cardiac Cath Educational Evaluation: Able to repeat information Intravenous Access Time IV Size Location DC'd Fluid/Drip Rate Units RN 20g 1 04/09" Patent On Arrival Rt Antecubital 0.9NaCl ml/hr Allergies Nka - No Known Allergies No Known Allergies Vital Signs Time BP (mmHg) HR (bpm) O2 Sat. RR (bpm) LOC 01:00 PM / % 5 = Fully awake and oriented or at pre-proc level 01:21 PM / % 5 = Fully awake and oriented or at pre-proc level 01:21 PM / % 4 = Oriented but drowsy 01:05 PM 150 / 90 91 98 % 13 01:10 PM 140 / 91 92 97 % 20 01:15 PM 141 / 88 90 95 % 18 01:20 PM 140 / 83 89 95 % 20 01:25 PM 143 / 89 89 97 % 16 01:30 PM 143 / 87 95 94 % 20 01:35 PM 132 / 77 90 97 % 10 01:40 PM 134 / 86 88 95 % 13 Procedural Medications Time Medication Dose Units Method Given By 01:00 PM Oxygen 2 L/min nasal cannula Shira Obrien RN 01:21 PM Versed 1 mg Intravenous Shira Obrien RN 01:21 PM Fentanyl 50 mcg Intravenous Shira Obrien RN 01:23 PM Lidocaine 2% 10 ml Subcutaneous Theo Sparrow MD ASA Classification: CLASS II- Mild systemic disease (i.e. well-controlled diabetes, hypertension, asthma, cigarette smoking) Janet Score Preprocedure Postprocedure Activity 2- Moves 4 extremities sustained head lift Activity 2- Moves 4 extremities sustained head lift Circulation 2- SBP +/= 20 points of pre-anesthetic level Circulation 2- SBP +/= 20 points of pre-anesthetic level Consciousness 2- Awake and alert oriented x 3 Consciousness 2- Awake and alert oriented x 3 O2 Saturation 2- Able to maintain O2 satruation of 92% on room air O2 Saturation 2- Able to maintain O2 satruation of 92% on room air Respiratory 2- Able to deep breathe and cough well Respiratory 2- Able to deep breathe and cough well Total Score 10 Total Score 10 Contrast Agent: Isovue Diagnostic Contrast: 61 ml Total Contrast: 61 ml Fluoro Dose: 27 mGy Procedure Log Time Note Enter By 12:56 PM Pt arrived to laboratory geneticist 2 at 12:56 [email or web address] 12:56 PM Patient charges- Angio tray pack, Navilyst 3mm J, Pulse Oximetry and ACIST tubing and transducer [email or web address] 12:57 PM Case Delayed No [email or web address] 12:58 PM Gracie Saleem RT (R) Position: Scrub Time in: 12:57 [email or web address] 12:58 PM Shira Obrien RN Position: Traffic Or System Dispatcher Time in: 12:58 [email or web address] 12:59 PM Soni Carter RN Position: Monitor Time in: 12:59 [email or web address] 12:59 PM Physician arrived 12:59 [email or web address] 12:59 PM Meet and greet completed [email or web address] 12:59 PM Sign in performed according to hospital policy. Informed consent was obtained. [email or web address] 12:59 PM Procedure start 12:59 [email or web address] 01:00 PM ASA Class CLASS II- Mild systemic disease (i.e. well-controlled diabetes, hypertension, asthma, cigarette smoking) [email or web address] 01:00 PM Time: 13:00 Patient comfortable and pain free: Yes [email or web address] 01:00 PM Time: 13:00LOC: 5 = Fully awake and oriented or at pre-proc level [email or web address] 01:00 PM Time: 13:00 Oxygen on at 2 L/min per nasal cannula by Shira Obrien RN [email or web address] 01:04 PM Vitals capture started with the following parameters, Patient=Adult, Interval=5 min, Initial Sjqgttcd=337 mmHg, Deflation Rate=5 mmHg, Cuff placed on Right Arm 01:05 PM CathStat 01:05 PM Recorded ECG: HR=92 Condition=Condition 1 01:05 PM HR=91 bpm, RWIZ=490/90 mmhg, SpO2=98.0 %, Resp=13 B/min 01:10 PM HR=92 bpm, FINR=196/91 mmhg, SpO2=97.0 %, Resp=20 B/min 01:15 PM HR=90 bpm, CXUT=376/88 mmhg, SpO2=95.0 %, Resp=18 B/min 01:19 PM Pressure channel 1 zero failed. 01:19 PM Pressure channel 1 zero failed. 01:19 PM Pressure channel 1 zero failed. 01:20 PM HR=89 bpm, TXTO=288/83 mmhg, SpO2=95.0 %, Resp=20 B/min 01:20 PM Pressure channel 1 zeroed. 01:20 PM Pressure channel 1 zero failed. 01:20 PM Pressure channel 1 zero failed. 01:20 PM Pressure channel 1 zero failed. 01:21 PM Time: 13:21 Versed 1 mg Intravenous Given by Shira Obrien RN [email or web address] : PM Time: 13:21 Fentanyl 50 mcg Intravenous Given by Shira Obrien RN [email or web address] : PM Time: 13:21 Patient comfortable and pain free: Yes jacki 01:21 PM Time: 13:21LOC: 5 = Fully awake and oriented or at pre-proc level [email or web address] 01:21 PM Time out was performed according to hospital policy. Conscious sedation and anesthesia was achieved (see medication log with in this report above) jacki 01: PM Pressure channel 1 zero failed. 01:21 PM Pressure channel 1 zero failed. 01:22 PM Pressure channel 1 zero failed. 01:22 PM Pressure channel 1 zeroed. :23 PM Time: 13:23 10 ml Lidocaine 2% to right groin Subcutaneous Given by Theo Sparrow MD :23 PM Micro-Introducer Kit utilized for sheath placement :25 PM HR=89 bpm, CPUH=583/89 mmhg, SpO2=97.0 %, Resp=16 B/min 01:25 PM Access obtained by percutaneous puncture. 6Fr 10cm Terumo [place] sheath placed in right Femoral artery. [id number] :25 PM 0.035 145cm Navilyst 3mmJ wire [id number] :25 PM 5Fr FR 4 catheter inserted over the wire [facility] 01:26 PM wire removed :28 PM RCA angiography performed in multiple views. :28 PM Recorded Pressure: Ao, HR=87, Condition=Condition 1 (Aorta) Ao 121/86/103 01:29 PM Catheter removed :30 PM 5Fr FL 4 catheter inserted over the wire [facility] 01:30 PM HR=95 bpm, JANP=587/87 mmhg, SpO2=94.0 %, Resp=20 B/min, EtCO2=20 mmHg 01:30 PM LCA angiography performed in multiple views. :30 PM Recorded Pressure: Ao, HR=96, Condition=Condition 1 (Aorta) Ao 122/83/101 01:32 PM Catheter removed :32 PM 5Fr Pigtail catheter inserted over the wire [facility] 01:32 PM Catheter crossed the aortic valve and was selectively placed in the left ventricle. Pressures recorded on pullback for left heart catheterization. 01:33 PM Recorded Pressure: LV, HR=93, Condition=Condition 1 (Left Ventricle) LV 116/22/25 01:34 PM Recorded Pressure: LV, Ao, HR=93, Condition=Condition 1 (Left Ventricle) LV 123/32/31, (Aorta) Ao 114/71/91 01:34 PM Catheter removed 01:35 PM HR=90 bpm, APMS=145/77 mmhg, SpO2=97.0 %, Resp=10 B/min, EtCO2=25 mmHg 01:36 PM Time: 13:21 Patient comfortable and pain free: Yes mm 01:36 PM Time: 13:21LOC: 4 = Oriented but drowsy [email or web address] 01:36 PM Bolus angiogram of right Femoral complete: 4 ml/sec for a total of 7 mls mm 01:36 PM Procedure completed at 13:36 07/21/2018oumm 01:36 PM Did you address KEIRA flow and Dominance? Yes oumm 01:37 PM Sign out completed: Radiation Dose 198.91 mGy, 26.8 Gy/cm2 Fluoro Time: 2.5 Isovue 370 - 200ml contrast 61 ml given by Theo Sparrow MD. Complications: None. The patient was discharged out of the hemodialysis lab technician in stable condition. Sedation minutes 16. Cardiac Rehab Consult needed: No. Confirmed administered medications: Yes oumm 01:37 PM Isovue 370 - 200ml,1 Bottle(s) used. tsoumm 01:38 PM Arterial sheath pulled, Mynx closure device used and was Successful [id number] S/N. tsoumm 01:38 PM Estimated Blood Loss: minimal tsoumm 01:38 PM Post ECG NSR tsoumm 01:38 PM Post Blood Pressure 132/77 tsoummers 01:39 PM Information taught Cardiac Cath and Mynx tsoumm 01:39 PM Education needs Procedure, Plan of Care, and Responsibilities of Patient in Care tsoumm 01:39 PM Learning barriers :None oumm 01:39 PM Education Methods Verbal tsoumm 01:39 PM Education evaluation Able to repeat information oumm 01:39 PM Plavix, Effient or Brilinta given No [email or web address] 01:39 PM Delay to floor No tsoummers 01:39 PM Lesion found in Mid RCA. Pre Stenosis: 60 Pre KEIRA Flow: [email or web address] 01:39 PM Lesion found in Distal RCA. Pre Stenosis: 50 Pre KEIRA Flow: tsoummers 01:40 PM Right Coronary, Right Posterior Descending Arteries with Right Posterolateral and Acute Marginal branches with 60 % stenosis. If graft is supplying this area, 0 % stenosis tsoummers 01:40 PM HR=88 bpm, XSGH=567/86 mmhg, SpO2=95.0 %, Resp=13 B/min 01:40 PM Lesion found in Right PDA. Pre Stenosis: 60 Pre KEIRA Flow: [email or web address] 01:40 PM Lesion found in Distal Circumflex. Pre Stenosis: 40 Pre KEIRA Flow: [email or web address] 01:41 PM Circumflex, Obtuse Marginal, Left Posterior Descending, and Left Posterolateral Coronary Arteries with 40 % stenosis. If graft is supplying this area, 0 % stenosis tsoummers 01:41 PM Lesion found in Proximal LAD. Pre Stenosis: 60 Pre KEIRA Flow: [email or web address] 01:41 PM Lesion found in 1st Diagonal. Pre Stenosis: 60 Pre KEIRA Flow: [email or web address] 01:41 PM Proximal Left Anterior Descending Coronary Artery with 60% stenosis. If graft is supplying this territory, 0 % stenosis. [email or web address] 01:41 PM Mid/Distal Left Anterior Descending Coronary Artery and diagonal branches with 60% stenosis. If graft is supplying this area, 0 % stenosis tsoummers 01:42 PM no family present [email or web address] 01:42 PM Site status No bleeding/hematoma - Rt Groin as reported by Gracie Saleem RT (R) at 13:42 [email or web address] 01:42 PM Opsite applied tsoummers 01:44 PM Report given to della KUNZ Pt taken to Holding room Room #47. 13:44 [email or web address] 01:44 PM Patient out of room: 13:44 [email or web address] 01:44 PM Coronary Dominance: right tsoummers Complications Complication None Hemodynamics Pressures Site Systolic/A Wave Diastolic/V Wave Mean AO 121 86 103 AO 122 83 101 LV 116 22 25 LV 123 32 31 AO 114 71 91 Post Procedure Information Blood Pressure: 132/77 mmHg Rhythm: NSR Post procedural instructions were given Closure Device Time Device Success/Fail 07/21/2018 1:39:00 PM MynxGrip Successful Site Checks Time Location Status Staff Sheath In? Note 01:42 PM Rt Groin No bleeding/hematoma Gracie Saleem RT (R) Pulses Time Site Pre-Procedure Post-Procedure Note Bilateral DP & PT 2+ Bilateral radial 2+ Updated by Soni Carter RN on 07/21/2018 1:47:02 PM electronically signed on 07/21/2018 1:48:27 PM with status of Final
--- NOTE | 2018-07-21 13:56 | Event Note ---
Date of Encounter: 07/21/18 Time of Encounter: 13:55 - Cardiology Event Note Discussed and reviewed with , [facility] with moderate, non-obstructive CAD. Cardiology will sign off, will arrange outpatient follow up.
--- NOTE | 2018-07-21 15:32 | Internal Med Progress Note ---
Hospitalist Progress Note - Encounter Date of Encounter: 07/21/18 Time of Encounter: 15:29 - Subjective Interval History: Patient's hemoglobin at bedside. Patient states feels pretty good today. Denies any shortness of breath. Feels like his cough is improving. Denies chest pain. - Exam Vitals: Temp Pulse Resp BP Pulse Ox 97.9 F 92 17 135/76 96 07/21/18 11:17 07/21/18 14:45 07/21/18 14:45 07/21/18 14:45 07/21/18 14:45 Exam: Gen.: Alert and oriented 3, no acute distress Heart: Regular rate and rhythm, no murmurs, rubs, gallops Lungs: Rare scattered wheezes, no rales, rhonchi. - Assessment and Plan (1) NSTEMI (non-ST elevated myocardial infarction) Current Visit: Yes Status: Acute Assessment and Plan: Plan for left heart catheterization today. Chest pain-free at this time. If nothing on left heart cath possible discharge tomorrow. (2) Severe sepsis Current Visit: Yes Status: Acute Assessment and Plan: Secondary to community acquired pneumonia, overall appears much improved. Sepsis has resolved. (3) Acute hypoxemic respiratory failure Current Visit: Yes Status: Acute Assessment and Plan: Secondary to pneumonia. Resolved at this time, patient is no longer requiring oxygen supplementation. Continue to monitor oxygen and supplement as necessary. (4) Pneumonia Current Visit: Yes Status: Acute Assessment and Plan: Chest x-ray reviewed shows evidence of left-sided pneumonia. Overall improving, white blood cell count improved, afebrile. Continue Levaquin for a total of 7 days. (5) Acute kidney injury Current Visit: Yes Status: Resolved Assessment and Plan: Likely due to sepsis. Creatinine 1.8 on presentation, now GFR greater than 60. Continue to monitor renal function daily. (6) Acute exacerbation of chronic obstructive airways disease Current Visit: Yes Status: Acute Assessment and Plan: Secondary to pneumonia. Still had mild wheezes on exam but improving. Continue antibiotics as above, scheduled bronchodilators, transition to by mouth today. (7) DKA (diabetic ketoacidoses) Current Visit: Yes Status: Resolved Assessment and Plan: Resolved. (8) Hypomagnesemia Current Visit: Yes Status: Resolved (9) Diabetes mellitus Current Visit: No Status: Chronic Assessment and Plan: Blood sugars under better control, ranging 150s to 100. Continue current insulin regimen. A1c reviewed shows 10.4 indicative of poor control at home. (10) DVT prophylaxis Current Visit: Yes Status: Acute Assessment and Plan: Heparin 5000 units subcutaneous twice a day - Time Spent with Patient Total time spent is greater than 50% in coordination of care (as documented) at patient's floor/unit and/or counseling patient: Internal Medicine: Result - Labs CBC & Chem 7: 07/21/18 04:46 07/21/18 04:46 Labs: Short CBC 07/21/18 Range/Units 04:46 WBC 7.8 (4.3-11.1) K/mcL Hgb 11.5 L (12.9-16.9) g/dL Hct 34.8 L (37.5-50.1) % Plt Count 167 (140-400) K/mcL Neutrophils # 6.6 (1.6-8.9) K/mcL BMP 07/21/18 04:46 Sodium 143 Potassium 3.4 L Chloride 108 H Carbon Dioxide 25 BUN 38 H Creatinine 1.13 Glucose 206 H Calcium 7.8 L - ABG Interpretation ABG results: ABG ABG pH 7.31 pH Units (7.32-7.45) L 07/18/18 08:00 ABG pCO2 38 mmHg (35-45) 07/18/18 08:00 ABG pO2 123 mmHg (85-104) H 07/18/18 08:00 ABG O2 Saturation 98 % (95-98) 07/18/18 08:00 PT/INR, D-dimer PT 12.3 Seconds (9.4-12.1) H 07/17/18 17:09 Consult Discharge Plan - Plan [facility]errals: [facility] [Primary Care Provider[facility] - (4) Pneumonia Qualifiers: Pneumonia type: due to unspecified organism Laterality: left Lung location: unspecified part of lung Qualified Code(s): J18.9 - Pneumonia, unspecified or ganism (7) DKA (diabetic ketoacidoses) Qualifiers: Diabetes mellitus type: type 2 Diabetes mellitus complication detail: without coma Qualified Code(s): E11.10 - Type 2 diabetes mellitus with ketoacidosis without coma (9) Diabetes mellitus Qualifiers: Diabetes mellitus type: type 2 Diabetes mellitus meterman insulin use: without meterman use Diabetes mellitus complication status: with hyperglycemia Qualified Code(s): E11.65 - Type 2 diabetes mellitus with hyperglycemia
[2018-07-22] MEDS: Ipratropium/Albuterol Neb 3 ML IH SCH ×5 (00:22→15:27)
[2018-07-22] MEDS: *HR* Heparin 5,000 UNIT/ML VIAL SQ SCH (05:48)
[2018-07-22 07:35] VITALS: BP 158/72
[2018-07-22] MEDS: Budesonide/Formoterol 160/4.5 1 PUFF INH IH SCH (07:38)
[2018-07-22] MEDS: Insulin LISPRO 300 UNITS/3 ML VIAL SQ SCH ×2 (08:35→13:34)
[2018-07-22] MEDS: Aspirin Enteric Coated 81 MG Tablet PO SCH (08:35)
[2018-07-22] MEDS: levoFLOXacin 750 MG TABLET PO SCH (08:36)
[2018-07-22] MEDS: Insulin DETEMIR 100 UNIT/ML X5UNITS SQ SCH (08:36)
[2018-07-22] MEDS ORDERED: predniSONE 20 MG TABLET PO SCH (09:00)
--- NOTE | 2018-07-22 10:34 | Discharge Summary ---
Orders not resulted at time of discharge: Pending orders 07/17/18 15:15 Culture,Blood [BC] Stat 07/17/18 18:02 Sputum Culture [Culture,Sputum with Gram Stain] [] Routine Date of Encounter: 07/22/18 Time of Encounter: 10:30 - Discharge Diagnosis (1) NSTEMI (non-ST elevated myocardial infarction) Priority: Primary Status: Acute (2) Severe sepsis Priority: Secondary Status: Resolved (3) Acute hypoxemic respiratory failure Priority: Secondary Status: Acute (4) Pneumonia Priority: Primary Status: Acute Qualifiers: Pneumonia type: due to unspecified organism Laterality: left Lung location: unspecified part of lung Qualified Code(s): J18.9 - Pneumonia, unspecified organism (5) Acute kidney injury Priority: Secondary Status: Resolved (6) Acute exacerbation of chronic obstructive airways disease Priority: Secondary Status: Acute (7) DKA (diabetic ketoacidoses) Priority: Secondary Status: Resolved Qualifiers: Diabetes mellitus type: type 2 Diabetes mellitus complication detail: without coma Qualified Code(s): E11.10 - Type 2 diabetes mellitus with ketoacidosis without coma (8) Hypomagnesemia Priority: Secondary Status: Resolved (9) Diabetes mellitus Priority: Secondary Status: Chronic Qualifiers: Diabetes mellitus type: type 2 Diabetes mellitus jail insulin use: without predatory animal exterminator use Diabetes mellitus complication status: with hyperglycemia Qualified Code(s): E11.65 - Type 2 diabetes mellitus with hyperglycemia Hospital course: Mr. Rodriguez is a 73 year old male with history of COPD who presented with sh ortness of breath and cough. He was initially admitted to the ICU with severe sepsis secondary to pneumonia. Wass also found to have elevated troponin greater than 1. Also had CHAI. Patient recovered well from his pneumonia and his CHAI resolved. Once patient's respiratory status improved he underwent left heart catheterization that showed mild disease but no critical lesions requiring intervention. Patient will be discharged home in stable condition. Patient also qualified for home oxygen at 2 L. Discharge discussed with: patient - Time Spent with Patient Total time spent providing and/or coordinating discharge services: Time spent: Greater than 30 minutes (40 minutes) - Discharge Medications Prescriptions: New levoFLOXacin [Levaquin] 750 mg PO DAILY #1 tablet Aspirin Enteric Coated [Aspirin EC] 81 mg PO DAILY tablet. Continue Paroxetine [Paxil] 10 mg PO BID Atenolol [Tenormin] 50 mg PO DAILY LORazepam [Ativan] 1 mg PO TID PRN PRN Reason: Anxiety Multivitamin/Iron/Folic Acid [Centrum Complete Multivit Tab] 1 each PO QAM Cranberry 1 cap PO QAM Albuterol Sulfate [Proair Respiclick] 2 puff IH Q4H PRN PRN Reason: Shortness Of Breath Budesonide/Formoterol 160/4.5 [Symbicort] 2 puff IH BIDR 30 Days inhaler Metformin HCl [Glucophage] 1,000 mg PO BID Lisinopril 1.25 mg PO DAILY hydroCHLOROthiazide [Hydrochlorothiazide] 12.5 mg PO DAILY guaiFENesin [Guaifenesin] 600 mg PO BID PRN PRN Reason: Congestion glipiZIDE [Glipizide] 10 mg PO BID Simvastatin [Zocor] 10 mg PO QPM Home Medications: Albuterol Sulfate [Proair Respiclick] 2 puff IH Q4H PRN 02/08/15 [History] Atenolol [Tenormin] 50 mg PO DAILY 02/08/15 [History] Cranberry 1 cap PO QAM 02/08/15 [History] LORazepam [Ativan] 1 mg PO TID PRN 02/08/15 [History] Multivitamin/Iron/Folic Acid [Centrum Complete Multivit Tab] 1 each PO QAM 02/08/15 [History] Paroxetine [Paxil] 10 mg PO BID 02/08/15 [History] Budesonide/Formoterol 160/4.5 [Symbicort] 2 puff IH BIDR 30 Days inhaler 02/11/15 [Rx] Lisinopril 1.25 mg PO DAILY 07/19/18 [History] Metformin HCl [Glucophage] 1,000 mg PO BID 07/19/18 [History] Simvastatin [Zocor] 10 mg PO QPM 07/19/18 [History] glipiZIDE [Glipizide] 10 mg PO BID 07/19/18 [History] guaiFENesin [Guaifenesin] 600 mg PO BID PRN 07/19/18 [History] hydroCHLOROthiazide [Hydrochlorothiazide] 12.5 mg PO DAILY 07/19/18 [History] Aspirin Enteric Coated [Aspirin EC] 81 mg PO DAILY tablet. 07/22/18 [Rx] levoFLOXacin [Levaquin] 750 mg PO DAILY #1 tablet 07/22/18 [Rx] Allergies/Adverse Reactions: Allergy/AdvReac Type Severity Reaction Status Date / Time No Known Allergies Allergy Verified 02/08/15 08:41 Date of admission: 07/17/18 12:42 Primary care physician: PCP MELIDA Consults: 07/17/18 16:56 Consult to Cardiology [CONS] Routine Comment: Consulting Provider: Cardiology Juliet Reason for Consult: Possible ACS, elevated troponin, h/o CAD Time Notified: 17:00 Call Completed: Yes 07/19/18 14:23 Consult to Nurse Navigator [CONS] Routine Comment: copd, pn 07/20/18 10:37 Consult to Cardiology [CONS] Routine Comment: Consulting Provider: Cardiology Juliet Reason for Consult: Elevated trop Call Completed: Yes Discharging clinician: Jaime Matute Anticipated date of discharge: 07/22/18 - Constitutional Vitals: Temp Pulse Resp BP Pulse Ox 97.6 F 73 20 158/72 97 07/22/18 07:30 07/22/18 07:30 07/22/18 07:39 07/22/18 07:30 07/22/18 07:39 General appearance: Present: A&O X 3 Exam: . - Respiratory Respiratory exam: Present: CTAB. Absent: rales, rhonchi, wheezes - Cardiovascular Cardiovascular exam: Present: RRR. Absent: gallop, rubs, systolic murmur - Patient Status Disposition: Home, Self-Care Condition: Fair Functional capacity at discharge: independent ambulation Overall status at discharge: patient is progressing back to baseline - Discharge Instructions [facility] With: [facility] Care Provider[facility] - (1 week) Additional Instructions: Please resume your home medications. [facility]. Please complete your antibiotic tomorrow. Please return for any new or worsening symptoms. - Diet and Activity Activity: wear oxygen at all times Diet: diabetic diet
== END 2018-07-22 13:43 | disposition home or self-care (01) | DRG 871 ==
LOC: SUATTDRO 12:42 → ICNU 12:42 → 2ANU 07-18 15:41
PROVIDERS: ADMIT Internal Medicine Hospice and Palliative Medicine; ATTEND Internal Medicine

== ENCOUNTER 2019-01-14 05:47 | Observation (INO) ==
[2019-01-14] MEDS ORDERED: Acetaminophen 325 MG TABLET PO PRN (11:09)
[2019-01-14] MEDS ORDERED: Naloxone 0.4 MG/ML INJ IVP PRN (11:09)
[2019-01-14] MEDS ORDERED: Mag Hydrox/Al Hydrox/Simeth 30 ML UDC PO PRN (11:09)
[2019-01-14] MEDS ORDERED: MOM Conc 10 ML UD.LIQ PO PRN (11:09)
[2019-01-14] MEDS ORDERED: D5% in Water 1,000 ML IVC PRN (11:12)
[2019-01-14] MEDS ORDERED: *HR* Dextrose 50 % in Water (Syg) 50 ML SYRINGE IVP PRN (11:12)
[2019-01-14] MEDS ORDERED: Albuterol 2.5 MG/3 ML NEBULIZER IH PRN (11:12)
[2019-01-14] MEDS ORDERED: Dextrose Gel 15 GM/37.5 ML TUBE PO PRN ×2 (11:12)
[2019-01-14] MEDS ORDERED: *HR* Heparin 5,000 UNIT/ML VIAL IVP PRN ×2 (11:12)
[2019-01-14] MEDS: Heparin 25,000 UNIT/250 ML D5W 25,000 UNIT/250 ML IV.SOLN IVC SCH (12:07)
[2019-01-14 12:08] LABS: Mean Corpuscular HGB Conc 32.6 g/dL (31.6-35.5); Mean Corpuscular Hemoglobin 30.4 pg (28.0-33.3); Mean Corpuscular Volume 93.5 fL (83.0-100.0); Mean Platelet Volume 9.5 fL (9.4-12.4); Platelet Count 221 K/mcL (140-400); Red Cell Distribution Width 14.8 % (11.5-14.5); White Blood Count 12.6 K/mcL (4.3-11.1)
[2019-01-14 12:17] LABS: Prothrombin Time 11.3 Seconds (9.4-12.1)
[2019-01-14 12:18] LABS: Heparin anti-factor XA UFH 0.55 IU/mL (0.30-0.70)
[2019-01-14 12:26] LABS: Albumin/Globulin Ratio 1.7 (1.1-2.2); Bilirubin,Total 0.4 mg/dL (0.3-1.0); Calcium 8.6 mg/dL (8.6-10.3); Globulin 2.4 g/dL (2.4-3.5); Magnesium 1.7 mg/dL (1.6-2.6); Potassium 4.6 mEq/L (3.5-5.1); Total Protein 6.4 g/dL (6.4-8.9)
[2019-01-14] MEDS: MethylPREDNISolone 40 MG/ML VIAL IVP SCH ×2 (12:51→17:02)
[2019-01-14] MEDS: cefTRIAXone 2,000 MG in Water for inj. (sterile) 20 ML IVP SCH (12:52)
[2019-01-14] MEDS ORDERED: 0.9 % Sodium Chloride 1,000 ML IVC SCH (13:15)
[2019-01-14 13:36] LABS: Estimated Average Glucose 137 mg/dl
[2019-01-14] MEDS: Ipratropium/Albuterol Neb 3 ML IH SCH ×2 (15:56→22:26)
[2019-01-14] MEDS ORDERED: Budesonide/Formoterol 160/4.5 1 PUFF INH IH PRN (16:12)
[2019-01-14] MEDS ORDERED: Azithromycin 500 MG in 0.9 % Sodium Chloride 250 ML IVPB SCH ×2 (16:15→18:00)
[2019-01-14] MEDS: Insulin LISPRO 300 UNITS/3 ML VIAL SQ SCH ×3 (16:16→20:20)
[2019-01-14] MEDS ORDERED: Isovue-370 500 ML BOTTLE IVP ONE (16:16)
[2019-01-14] MEDS ORDERED: Perflutren Lipid Microsphere 1.3 ML in 0.9 % Sodium Chloride 8.7 ML IVP ONE (17:08)
[2019-01-14] MEDS: Azithromycin 500 MG in 0.9 % Sodium Chloride 250 ML IVPB SCH (20:21)
[2019-01-15] MEDS: MethylPREDNISolone 40 MG/ML VIAL IVP SCH ×5 (00:10→23:15)
[2019-01-15] MEDS: Ipratropium/Albuterol Neb 3 ML IH SCH ×4 (04:31→22:15)
[2019-01-15 08:11] LABS: Hematocrit 34.9 % (37.5-50.1); Mean Corpuscular HGB Conc 32.4 g/dL (31.6-35.5); Mean Corpuscular Hemoglobin 29.6 pg (28.0-33.3); Mean Corpuscular Volume 91.4 fL (83.0-100.0); Mean Platelet Volume 9.4 fL (9.4-12.4); Platelet Count 166 K/mcL (140-400); Red Blood Count 3.82 M/mcL (4.19-5.50); Red Cell Distribution Width 14.8 % (11.5-14.5); White Blood Count 13.3 K/mcL (4.3-11.1)
[2019-01-15 08:17] LABS: Hemoglobin 11.3 g/dL (12.9-16.9)
[2019-01-15] MEDS: Lisinopril 20 MG TABLET PO SCH (08:30)
[2019-01-15] MEDS: Aspirin Enteric Coated 81 MG Tablet PO SCH (08:30)
[2019-01-15 08:31] LABS: BUN/Creatinine Ratio 28 (6-26); Blood Urea Nitrogen 35 mg/dL (8-23); Carbon Dioxide 24 mEq/L (23-29); Chloride 106 mEq/L (98-107); Glucose 326 mg/dL (70-105); Magnesium 1.5 mg/dL (1.6-2.6); Osmolality,Calculated 313 (280-300); Potassium 4.3 mEq/L (3.5-5.1); Sodium 141 mEq/L (136-145); eGFR For African Americans > 60 (> 60); eGFR For Non-African Americans 57 (> 60)
[2019-01-15] MEDS: Insulin LISPRO 300 UNITS/3 ML VIAL SQ SCH ×4 (08:32→21:23)
[2019-01-15] MEDS ORDERED: Azithromycin 500 MG in 0.9 % Sodium Chloride 250 ML IVPB SCH (09:00)
[2019-01-15] MEDS: Heparin 25,000 UNIT/250 ML D5W 25,000 UNIT/250 ML IV.SOLN IVC SCH (18:17)
[2019-01-15] MEDS: cefTRIAXone 2,000 MG in Water for inj. (sterile) 20 ML IVP SCH (18:22)
[2019-01-15] MEDS: Azithromycin 500 MG in 0.9 % Sodium Chloride 250 ML IVPB SCH (21:14)
[2019-01-15 21:43] LABS: Bilirubin,Urine Negative (Negative); Blood,Urine Negative (Negative); Clarity,Urine Clear (Clear); Color,Urine Yellow (Yellow); Glucose,Urine (UA) >=1000 mg/dL (Normal); Ketones,Urine Negative (Negative); Leukocyte Esterase,Urine Negative (Negative); Nitrite,Urine Negative (Negative); Protein,Urine Trace mg/dL (Neg-Trace); Specific Gravity,Urine > 1.030 (1.010-1.025); Urobilinogen,Urine Normal (Normal)
[2019-01-16] MEDS: Ipratropium/Albuterol Neb 3 ML IH SCH ×3 (04:19→15:25)
[2019-01-16] MEDS: MethylPREDNISolone 40 MG/ML VIAL IVP SCH (05:31)
[2019-01-16 07:12] LABS: Basophils % 0.1 %; Hematocrit 37.2 % (37.5-50.1); Hemoglobin 11.7 g/dL (12.9-16.9); Immature Granulocytes % 1.7 % (0-4); Lymphocytes # 0.7 K/mcL (0.6-4.6); Lymphocytes % 6.8 %; Mean Corpuscular HGB Conc 31.5 g/dL (31.6-35.5); Mean Corpuscular Hemoglobin 29.2 pg (28.0-33.3); Mean Corpuscular Volume 92.8 fL (83.0-100.0); Mean Platelet Volume 9.9 fL (9.4-12.4); Monocytes # 0.3 K/mcL (0.0-1.3); Monocytes % 3.3 %; Platelet Count 189 K/mcL (140-400); Red Blood Count 4.01 M/mcL (4.19-5.50); Red Cell Distribution Width 15.1 % (11.5-14.5); Segmented Neutrophils % 88.1 %; White Blood Count 10.2 K/mcL (4.3-11.1)
[2019-01-16 07:25] VITALS: BP 129/69
[2019-01-16 07:30] LABS: BUN/Creatinine Ratio 30 (6-26); Blood Urea Nitrogen 35 mg/dL (8-23); Calcium 8.2 mg/dL (8.6-10.3); Carbon Dioxide 25 mEq/L (23-29); Chloride 105 mEq/L (98-107); Glucose 338 mg/dL (70-105); Magnesium 2.2 mg/dL (1.6-2.6); Osmolality,Calculated 311 (280-300); Phosphorous 3.5 mg/dL (2.7-4.5); Potassium 4.5 mEq/L (3.5-5.1); Sodium 140 mEq/L (136-145); eGFR For African Americans > 60 (> 60); eGFR For Non-African Americans > 60 (> 60)
[2019-01-16] MEDS: Aspirin Enteric Coated 81 MG Tablet PO SCH (08:12)
[2019-01-16] MEDS: Insulin LISPRO 300 UNITS/3 ML VIAL SQ SCH (08:12)
[2019-01-16] MEDS: Lisinopril 20 MG TABLET PO SCH (08:13)
[2019-01-16] MEDS ORDERED: Insulin LISPRO 300 UNITS/3 ML VIAL SQ ONE (08:17)
[2019-01-16] MEDS ORDERED: predniSONE 20 MG TABLET PO SCH (17:00)
[2019-01-16] MEDS ORDERED: *HR* Heparin 5,000 UNIT/ML VIAL SQ SCH (18:00)
[2019-01-16] MEDS ORDERED: Insulin DETEMIR 100 UNIT/ML X5UNITS SQ SCH (21:00)
[2019-01-16] MEDS ORDERED: FLU Vac QV 19-20 (6Month+)/PF 0.5 ML SYRINGE IM ONE (21:29)
== END 2019-01-16 21:36 | disposition home or self-care (01) ==
LOC: 2NENU → SUATTDRO 09:24
PROVIDERS: ADMIT Internal Medicine; ATTEND Internal Medicine